=== PATIENT | female | born 1960 ===

== ENCOUNTER 2018-02-11 06:34 | Day surgery (SDC) | payer OTHER ==
[2018-02-03 10:50] VITALS: BMI 28.3
[2018-02-11] MEDS ORDERED: HYDROmorphone 0.5 mg/0.5 ml ISec IVP PRN (08:26)
[2018-02-11] MEDS ORDERED: Propofol 10 mg/ml Inj (20 ML) ONE (08:52)
[2018-02-11] MEDS ORDERED: Midazolam 2 MG/2 ML VIAL ONE (08:52)
--- NOTE | 2018-02-11 09:08 | PCM.SURG1 ---
Surgeon's Initial Post Op Note - Surgeon's Notes Surgeon: Nava Suarez MD Refinery Technician: none Type of Anesthesia: General LMA Pre-Operative Diagnosis: Post menopasual bleeding, fibroids Operative Findings: anterverted uterus, uterus sounded to 7cm, uterien midlie wall, wiht submucosal myoma, bilaeral ostia visualized Post-Operative Diagnosis: same as above, uterine wall Operation Performed: Hysteroscopic myomectomy, uterine wall resection, dilation and currettage Specimen/Specimens Removed: endocervical currettings, endometrial currettings, submucosal myoma with portion of uterine wall Estimated Blood Loss: EBL {In ML}: 5 Blood Products Given: N/A Drains Used: No Drains Post-Op Condition: Good Date of Surgery/Procedure: 02/11/18 Time of Surgery/Procedure: 08:55
[2018-02-11 10:39] VITALS: RESP 16
[2018-02-11 11:28] VITALS: BP 112/71; PULSE 74; TEMP 97.9; O2SAT 100
--- NOTE | 2018-02-11 19:26 | OP ---
PROCEDURE DATE: 02/11/2018 SURGEON: Nava Suarez MD ORGAN PIPE VOICER: None. TYPE OF ANESTHESIA: General. PREOPERATIVE DIAGNOSES: Postmenopausal bleeding and fibroids. POSTOPERATIVE DIAGNOSES: Postmenopausal bleeding and fibroids. OPERATIVE FINDINGS: Anteverted uterus. Uterus sounded to 7 cm. Uterine wall midline with submucosal myoma. Bilateral ostia visualized. OPERATION PERFORMED: Hysteroscopic myomectomy, uterine wall resection, dilation and curettage. SPECIMEN REMOVED: Endometrial curetting, submucosal myoma . ESTIMATED BLOOD LOSS: 5 mL. BLOOD PRODUCTS: None. COMPLICATIONS: None. DESCRIPTION OF PROCEDURE: The patient was taken to the operating room after general consent was obtained. The patient was placed on the operating table in dorsal supine position with legs supported using stirrups. After adequate anesthesia was obtained, the patient was prepped and draped in the usual sterile fashion. Time-out confirmed correct patient and correct procedure. Bimanual exam was performed with the above-mentioned findings. A Villalba retractor was placed in the anterior posterior fornix of the vagina. The cervix was adequately visualized. A single-tooth tenaculum was placed on the anterior lip of the cervix. Endocervical curettings were obtained with a Davidian curette and sent to Pathology on [facility]. The cervix was carefully dilated and the uterus was sounded. The cervix was sequentially dilated with a Mynor dilator to allow for introduction of the hysteroscope under direct visualization using normal saline as the distention media. Bilateral ostia were visualized. There was a submucosal myoma noted on anterior midline also with an approximately 1 cm midline uterine wall. The MyoSure device was then inserted under direct visualization and careful resection did occur of the mass and the wall. There was good hemostasis noted. The MyoSure device has been removed. Gentle curettage was done with the curette. The hysteroscope was then reintroduced. There was good hemostasis noted. All instruments were removed. There was good hemostasis at the tenaculum puncture site. At the end of the procedure, all needle, sponge, and instrument counts were noted and correct x2. The patient tolerated the procedure well and was transferred to the recovery room in stable condition. Nava Suarez MD
== END 2018-02-11 11:33 | disposition home or self-care (01) ==
LOC: C.SDS 06:34
PROVIDERS: ATTEND Obstetrics & Gynecology
DX: N95.0 Postmenopausal bleeding (principal); D25.9 Leiomyoma of uterus, unspecified
CPT/HCPCS: 58561; 88305; 88309; J2250; J2704; J3010